=== PATIENT | female | born 1980 | race African-American/Black ===

== ENCOUNTER 2024-12-13 12:57 | Emergency (ER) | payer SELFPAY ==
[~2024-12-13] VITALS: Ht 167.6 cm; Wt 95.2 kg
[2024-12-13 13:04] VITALS: PULSE 79; RESP 18; O2SAT 99
[2024-12-13 13:05] VITALS: BP 132/65; TEMP 36.8; O2SAT 100
[2024-12-13] MEDS ORDERED: CYCL10TA21 MT (14:16)
[2024-12-13] MEDS ORDERED: IBUP-2030 MT (14:16)
== END 2024-12-13 14:33 | disposition home or self-care (01) ==
LOC: ER 13:08
DX: S39.012A Strain of muscle, fascia and tendon of lower back, initial encounter (principal); V89.2XXA Person injured in unspecified motor-vehicle accident, traffic, initial encounter; Y93.89 Activity, other specified; Y92.89 Other specified places as the place of occurrence of the external cause; Y99.8 Other external cause status
CPT/HCPCS: 72100; 99283